=== PATIENT | male | born 1980 | race American Indian/Alaskan Native ===

== ENCOUNTER 2019-11-06 12:44 | Emergency (ER) | payer OTHER ==
[2019-11-06 12:52] VITALS: BP 190/112
--- NOTE | 2019-11-06 13:13 | Event Note ---
ED Screening Note ED Screening Note: this is a 39-year-old male that presents with left knee pain s/p direct blow. This initial assessment/diagnostic orders/clinical plan/treatment(s) is/are subject to change based on patients health status, clinical progression and re- assessment by fellow clinical providers in the ED. Further treatment and workup at subsequent clinical providers discretion. Patient/guardian urged not to elope from the ED as their condition may be serious if not clinically assessed and managed. Initial orders include: xrays
--- NOTE | 2019-11-06 13:47 | XRay Report ---
LEFT KNEE 3 VIEWS INDICATION: Knee pain. COMPARISON: None. IMPRESSION: No acute osseous or soft tissue abnormality. No significant DJD. Signer Name: Modesto Pinto Jr, MD Signed: 11/06/2019 1:43 PM Workstation Name: [id number]
--- NOTE | 2019-11-06 13:51 | Emergency Department Report ---
ED Lower Extremity HPI - General Chief Complaint: Extremity Injury, Lower Stated Complaint: PAIN ON (L) KNEE Time Seen by Provider: 11/06/19 13:11 Source: patient Mode of arrival: Ambulatory Limitations: No Limitations - History of Present Illness Initial Comments: 39-year-old -English male with a past history of hypertension MD Complaint: knee injury -: Sudden Injury: Leg: Right Type of Injury: inversion Place: work [place] leg causing it to twist and then hit into the wall causing severe pain. He was able to complete his work day after the injury but his knee grew swollen and more tight at that she shift on his right home. The swelling and the pain progressively will worsen to the point he was unable to support his weight and states that his knee felt unstable. No no numbness or tingling. No fever chills or sweats no broken skin) Improves With: nothing Worsens With: nothing Associated Symptoms: swelling - Related Data Home Medications Medication Instructions Recorded Confirmed Last Taken Lisinopril/Hydrochlorothiazide 1 tab PO QDAY 09/20/16 09/20/16 Unknown [Zestoretic 10-12.5 mg] Metoprolol Tartrate [Lopressor] 50 mg PO DAILY 09/20/16 09/20/16 Unknown Sulfamethoxazole/Trimethoprim 1 each PO BID 09/20/16 09/20/16 Unknown [Bactrim DS TAB] hydrALAZINE [Apresoline] 25 mg PO Q8HR 09/20/16 09/20/16 Unknown Previous Rx's Medication Instructions Recorded Last Taken Type Penicillin Vk [Veetids TAB] 250 mg PO QID #28 tablet 09/20/16 Unknown Rx Ketorolac [Toradol] 10 mg PO Q6H PRN #14 tablet 11/06/19 Unknown Rx Allergies Allergy/AdvReac Type Severity Reaction Status Date / Time No Known Allergies Allergy Verified 09/20/16 04:06 ED Review of Systems ROS: Stated complaint: PAIN ON (L) KNEE Other details as noted in HPI Comment: All other systems reviewed and negative ED Past Medical Hx - Past Medical History Hx Hypertension: Yes (FOR 17 YRS, DR. LUCY PEGUERO- PCP) Hx GERD: Yes - Surgical History Past Surgical History?: Yes Additional Surgical History: hernia - Social History Smoking Status: Current Every Day Smoker Substance Use Type: None - Medications Home Medications: Home Medications Medication Instructions Recorded Confirmed Last Taken Type Lisinopril/Hydrochlorothiazide 1 tab PO QDAY 09/20/16 09/20/16 Unknown History [Zestoretic 10-12.5 mg] Metoprolol Tartrate [Lopressor] 50 mg PO DAILY 09/20/16 09/20/16 Unknown History Penicillin Vk [Veetids TAB] 250 mg PO QID #28 tablet 09/20/16 Unknown Rx Sulfamethoxazole/Trimethoprim 1 each PO BID 09/20/16 09/20/16 Unknown History [Bactrim DS TAB] hydrALAZINE [Apresoline] 25 mg PO Q8HR 09/20/16 09/20/16 Unknown History Ketorolac [Toradol] 10 mg PO Q6H PRN #14 tablet 11/06/19 Unknown Rx ED Physical Exam - General Limitations: No Limitations General appearance: alert, in no apparent distress - Head Head exam: Present: atraumatic, normocephalic - Eye Eye exam: Present: normal appearance, PERRL, EOMI Pupils: Present: normal accommodation - ENT ENT exam: Present: normal exam, mucous membranes moist - Neck Neck exam: Present: normal inspection - Respiratory Respiratory exam: Present: normal lung sounds bilaterally. Absent: respiratory distress - Cardiovascular Cardiovascular Exam: Present: regular rate, normal rhythm. Absent: systolic murmur, diastolic murmur, rubs, gallop - GI/Abdominal GI/Abdominal exam: Present: soft, normal bowel sounds - Rectal Rectal exam: Present: deferred - Extremities Exam Extremities exam: Present: normal inspection, tenderness, joint swelling - Expanded Lower Extremity Exam Left Knee exam: Present: tenderness, swelling, ecchymosis (To the medial posterior region of the knee), posterior draw sign, pain/laxity with valgus. Absent: full ROM - Back Exam Back exam: Present: normal inspection - Neurological Exam Neurological exam: Present: alert, oriented X3 - Psychiatric Psychiatric exam: Present: normal affect, normal mood - Skin Skin exam: Present: warm, dry, intact, normal color. Absent: rash ED Course Vital Signs 11/06/19 12:50 Temperature 97.9 F Pulse Rate 99 H Respiratory 20 Rate Blood Pressure 190/112 O2 Sat by Pulse 99 Oximetry ED Lower Extremity MDM - Radiology Data Radiology results: report reviewed (No acute processes) Critical care attestation.: If time is entered above; I have spent that time in minutes in the direct care of this critically ill patient, excluding procedure time. ED Disposition Clinical Impression: Internal derangement of left knee involving capsular ligament Disposition: TO HOME OR SELFCARE Is pt being admited?: No Does the pt Need Aspirin: No Condition: Stable Instructions: Knee Immobilizer (ED), Magnetic Resonance Imaging (ED) Prescriptions: Ketorolac [Toradol] 10 mg PO Q6H PRN #14 tablet PRN Reason: Pain Referrals: KALPANA LESTER MD [Staff Physician] - 3-5 Days
[2019-11-06] MEDS ORDERED: oxyCODONE /ACETAMINOPHEN 5-325MG TAB PO STA (14:09)
== END 2019-11-06 15:41 | disposition home or self-care (01) ==
LOC: ED 12:44
DX: M23.92 Unspecified internal derangement of left knee (principal); I10 Essential (primary) hypertension; K21.9 Gastro-esophageal reflux disease without esophagitis; F17.200 Nicotine dependence, unspecified, uncomplicated
CPT/HCPCS: 99283